=== PATIENT | male | born 1945 | race Caucasian/White ===

== ENCOUNTER 2017-02-19 08:02 | Day surgery (SDC) | payer OTHER, BC ==
[~2017-02-19] VITALS: Ht 188 cm; Wt 106.6 kg
[2017-02-19] MEDS ORDERED: MEPERIDINE HCL/PF 100 MG/ML AMP ONE (08:15)
[2017-02-19] MEDS: MIDAZOLAM HCL 5 MG/5 ML VIAL ONE ×4 (09:47→10:12)
[2017-02-19 13:34] VITALS: BP 146/72; PULSE 52; RESP 16
== END 2017-02-19 11:25 | disposition home or self-care (01) ==
LOC: SDS 08:02
PROVIDERS: ATTEND Internal Medicine Gastroenterology
DX: Z08 Encounter for follow-up examination after completed treatment for malignant neoplasm (principal); Z85.030 Personal history of malignant carcinoid tumor of large intestine; K44.9 Diaphragmatic hernia without obstruction or gangrene; K21.0 Gastro-esophageal reflux disease with esophagitis; D12.8 Benign neoplasm of rectum; K57.30 Diverticulosis of large intestine without perforation or abscess without bleeding; D12.5 Benign neoplasm of sigmoid colon; D12.3 Benign neoplasm of transverse colon; K64.8 Other hemorrhoids
CPT/HCPCS: 43239; 45380; 45385; 88305; 88313; J2175; J2250; J7030; 88312